=== PATIENT | female | born 1990 | race Caucasian/White ===

== ENCOUNTER 2016-05-04 08:03 | Emergency (ER) | payer OTHER ==
--- NOTE | ~2016-05-04 | CR72 ---
[facility] A Service of [facility] RADIOLOGY TEXT RESULTS PATIENT: FERNANDA ZAPATA LOCATION: [facility] : [birth year] UNIT #: [id number] AGE: [address]: Keith Bro SEX: F ORDER DR: [id number] [facility] [address] [place], [place] [address] [id number] MR#: [id number] Acc #: [id number] NAME: FERNANDA ZAPATA : 1990 SEX: F STUDY DATE/TIME: 05/04/2016 8:59 UNIT: [facility] ROOM: STUDY DESCRIPTION: CR Chest Single View Portable Attending Physician: Keith Bro Ordering Physician: Ed Doc Melissa Garcia Primary Care Physician: No Primary Care Physician MEDICAL IMAGING REPORT This report is preliminary unless electronic signature is present EXAM Portable chest, 05/04. INDICATION Shortness of air and cough since yesterday. Patient out of her asthma medications. COMPARISON 03/21/2016 FINDINGS A single AP portable view of the chest shows both lungs to be clear. The heart is normal in size. The mediastinal contour is normal. No significant bone abnormalities are seen. IMPRESSION Normal portable chest. Dictated by... Akshat Beltran Jr., M.D. THIS IS AN ELECTRONICALLY VERIFIED REPORT Akshat Beltran Jr., M.D. at 05/04/2016 3:50 PM ALIX/zehra TD: 05/04/2016 10:45 JOB #: [id number] MEDICAL IMAGING REPORT COPY
[~2016-05-04 08:03] MED LIST: ADVAIR 100-501 EACH IH; ALB/IPRATROPIUM/1 E2 IH; ALBUTEROL 0.5ML INH; ALBUTEROL MININEB INH; ALBUTEROL17 GM INH; AMOXICILLIN PO; BACTRIM DS TABL1 TA1 PO; BACTRIM DS TABL1 TA2 PO; CIPRO750 MG PO; COMBIVENT U/D3 M1 INH; DUONEB 2.5-0.5 M3 ML NEB; IBUPROFEN PO; KEFLEX PO; KEFLEX500 MG PO; LORTAB 5/500 TA1 TA2 PO; MEDROL DOSEPAK4 MG PO; MEDROL PO; MEDROL4 MG/DOSE- PO; NOVOLOG100 U/ML SUBQ; PHENERGAN PO; PREDNISONE PO; PREDNISONE10 MG PO; PREDNISONE10 MG/DOSE PO; PROAIR HFA8.5 GM INH; PROVENTIL INH0.5 ML HHN; ROBITUSSIN A-C S5 ML PO; SYMBICORT INH; VENTOLIN5 MG/ML IH; VIBRAMYCIN100 M1 PO; VICODIN 5/1 TAB 5/50 PO; VOLTAREN75 MG PO; ZITHROMAX PO; ZITHROMAX500 MG PO; ZYRTEC10 M2 PO
== END 2016-05-04 11:30 | disposition home or self-care (01) ==
LOC: CED 08:03
DX: J45.901 Unspecified asthma with (acute) exacerbation (principal); F17.210 Nicotine dependence, cigarettes, uncomplicated
CPT/HCPCS: 71010; 84703; 94640; 99284

== ENCOUNTER 2016-08-05 00:17 | Emergency (ER) | payer OTHER | END 2016-08-05 03:35 | disposition home or self-care (01) | LOC: CED 00:17 | DX: L02.415 Cutaneous abscess of right lower limb (principal); J45.909 Unspecified asthma, uncomplicated; F17.210 Nicotine dependence, cigarettes, uncomplicated | CPT/HCPCS: 10060; 99283 ==

== ENCOUNTER 2016-10-26 15:44 | Emergency (ER) | payer OTHER ==
[~2016-10-26] VITALS: Ht 165.1 cm; Wt 52.2 kg
== END 2016-10-26 16:50 | disposition home or self-care (01) ==
LOC: CFTX 15:44 → CED 15:44 → CFTX 16:44
DX: J45.901 Unspecified asthma with (acute) exacerbation (principal); F17.210 Nicotine dependence, cigarettes, uncomplicated; Z79.899 Other long term (current) drug therapy
CPT/HCPCS: 94640; 96372; 99284; J1100

== ENCOUNTER 2016-11-05 11:37 | Emergency (ER) | payer OTHER ==
[~2016-11-05] VITALS: Ht 165.1 cm; Wt 52.2 kg
[2016-11-05 12:28] LABS: URINE SOURCE CLEAN CATCH
[2016-11-05 12:38] LABS: URINE APPEARANCE CLOUDY; URINE BILIRUBIN NEG (NEG); URINE BLOOD 3+ (NEG); URINE COLOR YELLOW; URINE GLUCOSE NEG (NEG); URINE KETONE NEG (NEG); URINE LEUKOCYTE ESTERASE 3+ (NEG); URINE NITRATE NEG (NEG); URINE PH 5.5 (5-8); URINE PROTEIN 2+ (NEG)
[2016-11-05 12:40] LABS: CULTURE INDICATED? YES; URBCS1 AUWI INNUM /[HPF] (0-2); URINE BACTERIA AUWI NEG (NEGATIVE); URINE SQUAMOUS EPITHELIAL CELL NONE SEEN /[HPF]; UWBCS1 AUWI INNUM (0-5)
== END 2016-11-05 13:00 | disposition home or self-care (01) ==
LOC: CFTX 11:37 → CED 11:37 → CFTX 12:32
PROVIDERS: Nurse Practitioner
DX: N30.01 Acute cystitis with hematuria (principal); J45.909 Unspecified asthma, uncomplicated; F17.200 Nicotine dependence, unspecified, uncomplicated
CPT/HCPCS: 81003; 84703; 87086; 87088; 87186; 99283